=== PATIENT | male | born 1960 | race Two or more races ===

== ENCOUNTER 2019-02-25 12:46 | Inpatient (IN) | payer MEDICAID ==
[~2019-02-25] VITALS: Ht 180.3 cm; Wt 163.3 kg
--- NOTE | 2019-02-25 13:00 | NUR ---
patient came in to the ER c/o chest pressure like pain. On room air, breathing evenly and unlabored. connected to the monitor and puls eox. Will continue to monitor accordingly.
[2019-02-25 13:18] LABS: CALCIUM, SERUM 10.7 mg/dL (8.5-10.1); CREATININE 1.2 mg/dL (0.6-1.3); POTASSIUM 4.3 mmol/L (3.5-5.1)
[2019-02-25 13:24] LABS: ALBUMIN 3.2 g/dL (3.4-5.0); BILIRUBIN,DIRECT 0.2 mg/dL (0.0-0.2); BILIRUBIN,TOTAL 0.6 mg/dL (0.2-1.0); TOTAL PROTEIN, SERUM 6.9 g/dL (6.4-8.2)
[2019-02-25 13:33] LABS: BASOPHILS # (AUTO) 0.1 /CMM (0.0-0.2); EOSINOPHILS % (AUTO) 0.9 % (0.0-6.0); HEMATOCRIT 50 % (39-51); LYMPHOCYTES % (AUTO) 32.5 % (20.0-44.0); MEAN CORPUSCULAR HGB CONC 32 g/dl (31.0-36.0); MEAN CORPUSCULAR VOLUME 81 fL (80-96); MONOCYTES # (AUTO) 0.6 /CMM (0.1-1.30); MONOCYTES % (AUTO) 6.3 % (2.0-12.0); NEUTROPHILS # (AUTO) 5.6 /CMM (1.8-8.9); NEUTROPHILS % (AUTO) 59.3 % (43.0-81.0); PLATELET COUNT (AUTO) 268 /CMM (150-450); RED BLOOD CELL COUNT(AUTO) 6.09 MIL/uL (4.5-6.0); WHITE BLOOD COUNT (AUTO) 9.4 K/uL (4.3-11.0)
--- NOTE | 2019-02-25 13:40 | NUR ---
wheeled patient for CT.
[2019-02-25] MEDS ORDERED: IV NS 0.9% 250 ML IV ONE ×3 (13:42→14:21)
[2019-02-25] MEDS ORDERED: IOHEXOL-350 100 ML VIAL IV ONE ×2 (13:42→14:20)
[2019-02-25] MEDS ORDERED: CT SWABBABLE VALVE TRANS SET 1 EA INFUS.SET MC ONE (13:43)
--- NOTE | 2019-02-25 14:53 | NUR ---
NURSING SUP GAVE 114-2.
--- NOTE | 2019-02-25 14:55 | NUR ---
PAGED [facility].
[2019-02-25] MEDS ORDERED: KCL (15:44)
[2019-02-25] MEDS ORDERED: MAG (15:44)
[2019-02-25] MEDS ORDERED: ASPI-869 PO (15:44)
[2019-02-25] MEDS ORDERED: [UNRECOGNIZED DRUG - OTHER] (15:44)
[2019-02-25] MEDS ORDERED: CHOL100040 PO (15:44)
--- NOTE | 2019-02-25 15:44 | NUR ---
Report given to Aura PATEL for madyson.
--- NOTE | 2019-02-25 15:56 | NUR ---
patient wheeled to ABHILASH,RN at bedside to assume care.
[2019-02-25 16:00] VITALS: BP 148/96
[2019-02-25] MEDS ORDERED: IV NS 0.9% 1,000 ML IV PRN (16:06)
[2019-02-25] MEDS ORDERED: ONDANSETRON HCL/PF 4 MG/2 ML VIAL IVP PRN (16:30)
[2019-02-25] MEDS ORDERED: MORPHINE SULFATE INJ 2 MG/ML DISP.SYRIN IV PRN (16:30)
[2019-02-25] MEDS ORDERED: ACETAMINOPHEN 325 MG TABLET PO PRN (16:30)
[2019-02-25] MEDS ORDERED: ZOLPIDEM TARTRATE 5 MG TABLET PO PRN (16:30)
[2019-02-25] MEDS ORDERED: Z GUARD REMEDY 2 OZ OINT TP PRN (16:30)
[2019-02-25 17:08] VITALS: BP 148/96
--- NOTE | 2019-02-25 19:29 | NUR ---
[facility] WINDING OPERATOR CLOSING Patient remains A/Ox4, receiving echo at this time. On room air, no SOB or resp distress. Denies chest pain. Reminded to call using call light when necessary. Tele monitor attached, sinus rhythm, HR WNL. Able to ambulate to the bathroom. [place] socks on. Reminded to call for help. R FA 18G c/d/i, infusing NS @75mL/hr. Endorsed to NOC RN, call light within reach, partner at bedside
[2019-02-25 20:00] VITALS: BP 154/87
[2019-02-26] VITALS: BP 161/92
[2019-02-26] MEDS: hydrALAZINE HCL 10 MG TABLET PO PRN ×2 (00:01→08:54)
[2019-02-26 04:00] VITALS: BP 145/89
[2019-02-26 07:09] LABS: BASOPHILS # (AUTO) 0.1 /CMM (0.0-0.2); BASOPHILS % (AUTO) 0.6 % (0.0-2.0); EOSINOPHILS % (AUTO) 1.7 % (0.0-6.0); HEMATOCRIT 48 % (39-51); HEMOGLOBIN 15.4 g/dL (13.5-17.5); LYMPHOCYTES # (AUTO) 3.5 /CMM (0.8-4.8); LYMPHOCYTES % (AUTO) 41.6 % (20.0-44.0); MEAN CORPUSCULAR HGB CONC 32 g/dl (31.0-36.0); MEAN CORPUSCULAR VOLUME 81 fL (80-96); MONOCYTES # (AUTO) 0.7 /CMM (0.1-1.30); MONOCYTES % (AUTO) 8.3 % (2.0-12.0); NEUTROPHILS % (AUTO) 47.8 % (43.0-81.0); PLATELET COUNT (AUTO) 259 /CMM (150-450); RED BLOOD CELL COUNT(AUTO) 5.97 MIL/uL (4.5-6.0); WHITE BLOOD COUNT (AUTO) 8.3 K/uL (4.3-11.0)
[2019-02-26 07:25] LABS: ALBUMIN 2.8 g/dL (3.4-5.0); BILIRUBIN,TOTAL 0.5 mg/dL (0.2-1.0); CALCIUM, SERUM 9.9 mg/dL (8.5-10.1); CREATININE 1.1 mg/dL (0.6-1.3); MAGNESIUM 1.7 mg/dL (1.8-2.4); PHOSPHORUS 3.3 mg/dL (2.5-4.9); TOTAL PROTEIN, SERUM 6.3 g/dL (6.4-8.2)
[2019-02-26 07:30] LABS: THYROID STIMULATING HORMONE 2.776 uIU/mL (0.358-3.74)
[2019-02-26 08:00] VITALS: BP 170/99
[2019-02-26] MEDS ORDERED: ASPIRIN EC 325 MG TABLET.DR PO SCH (09:00)
[2019-02-26] MEDS ORDERED: CHOLECALCIFEROL 1,000 UNIT TABLET (VIT D3) PO SCH (09:00)
[2019-02-26] MEDS ORDERED: ASPIRIN 81 MG TAB.CHEW PO SCH (09:30)
[2019-02-26] MEDS ORDERED: ENOXAPARIN SODIUM 40 MG/0.4 ML DISP.SYRIN SQ SCH ×2 (09:30→09:41)
[2019-02-26] MEDS ORDERED: ATORVASTATIN 40 MG TABLET PO SCH (09:30)
[2019-02-26] MEDS ORDERED: IOHEXOL-350 100 ML VIAL IV ONE (10:08)
[2019-02-26] MEDS ORDERED: IV NS 0.9% 250 ML IV ONE (10:08)
[2019-02-26] MEDS ORDERED: NITROGLYCERIN 4.9 GM SPRAY SL PRN (10:30)
[2019-02-26] MEDS ORDERED: IV NS 0.9% 500 ML IV PRN (10:30)
[2019-02-26] MEDS ORDERED: METOPROLOL TARTRATE INJ 5 MG/5 ML AMPUL ONE (10:31)
[2019-02-26] MEDS ORDERED: NITROGLYCERIN 0.4 MG/TAB BOTTLE ONE (10:31)
[2019-02-26] MEDS: METOPROLOL TARTRATE INJ 5 MG/5 ML AMPUL IVP PRN ×5 (10:39→10:58)
--- NOTE | 2019-02-26 11:17 | NUR ---
tolerated CTA heart. VSS ; fredo CP SOB, transferred to [facility] via wheelchair, handoff report at bedside done with RN
[2019-02-26] MEDS: Magnesium 1GM/D5W 100ML PREMIX 100 ML IV SCH ×2 (11:30→13:18)
[2019-02-26 12:00] VITALS: BP 117/75
[2019-02-26] MEDS ORDERED: METOPROLOL TARTRATE 50 MG TABLET PO SCH (12:00)
[2019-02-26] MEDS ORDERED: COEN1CAP PO (15:12)
[2019-02-26] MEDS ORDERED: ATOR40TA PO (15:12)
[2019-02-26] MEDS ORDERED: ASPI-605 PO (15:12)
[2019-02-26 16:00] VITALS: BP 134/84
--- NOTE | 2019-02-26 17:27 | NUR ---
RN DC NOTE Received DC order to home. Patient denies chest pain or shortness of breath. Patient + vitals stable. No wound pictures to be taken. Provided medication education and emergency symptoms discussion, patient verbalizes understanding. Reminded to pickling grader medications from pharmacy. Belongings checklist signed. Patient ambulated out of unit with [facility] for LIFT ride.
== END 2019-02-26 17:20 | disposition home or self-care (01) ==
LOC: ER 12:46 → TELE1 15:20 → MEDSG1 02-26 14:12
PROVIDERS: ADMIT Nurse Practitioner Acute Care; ATTEND Nurse Practitioner Acute Care
DX: K80.20 Calculus of gallbladder without cholecystitis without obstruction (principal); E66.2 Morbid (severe) obesity with alveolar hypoventilation; I25.10 Atherosclerotic heart disease of native coronary artery without angina pectoris; Z86.718 Personal history of other venous thrombosis and embolism; Z96.649 Presence of unspecified artificial hip joint; Z68.43 Body mass index [BMI] 50.0-59.9, adult; Z82.49 Family history of ischemic heart disease and other diseases of the circulatory system; I10 Essential (primary) hypertension
CPT/HCPCS: 36415; 71045-TC; 75574; 76705-TC; 80048-TC; 80053-TC; 80061-TC; 80076-TC; 82550-TC; 83540-TC; 83690-TC; 83735-TC; 84100-TC; 84443-TC; 84484-TC; 85025-TC; 85730-TC; 87081-TC; 93307-TC; G0378; J1650; J2270; J3475; J3490; J7030; J7050; Q9967